=== PATIENT | male | born 1930 | race Caucasian/White ===

== ENCOUNTER 2016-12-21 08:30 | Outpatient (CLI) | END 2016-12-21 08:31 | disposition home or self-care (01) | LOC: AMBL 08:30 | PROVIDERS: ATTEND Emergency Medicine | DX: M79.605 Pain in left leg (principal); S79.912A Unspecified injury of left hip, initial encounter; W07.XXXA Fall from chair, initial encounter; Y92.099 Unspecified place in other non-institutional residence as the place of occurrence of the external cause ==